=== PATIENT | male | born 1985 | race Caucasian/White ===

== ENCOUNTER 2016-08-08 12:35 | Emergency (ER) | payer SELFPAY ==
[~2016-08-08] VITALS: Ht 188 cm; Wt 118.0 kg
[~2016-08-08 12:35] MED LIST: DOXY100T PO; Z.0.NO CURRENT MEDS
[2016-08-08 12:37] VITALS: BP 141/96; PULSE 82; RESP 14; TEMP 97.5; O2SAT 96
== END 2016-08-08 15:12 | disposition left against medical advice (07) ==
LOC: NED 12:35
DX: R42 Dizziness and giddiness (principal)
CPT/HCPCS: 99281